=== PATIENT | male | born 1960 | race Caucasian/White ===

== ENCOUNTER 2019-05-05 12:57 | Outpatient (REF) | payer MEDICAID, SELFPAY ==
[2019-05-05 18:52] LABS: HCT 39.9 % (40.0-50.0); HGB 14.1 g/dL (13.5-17.5); Mean Corp. HGB Concentration 35.3 g/dL (32.0-36.0); Mean Corpuscular Hemoglobin 31.2 pg (27.0-33.0); Mean Corpuscular Volume 88.3 fL (80-95); Mean Platelet Volume 9.1 fL (8.0-11.0); Platelet Count 301 x1000/uL (130-400); RBC 4.52 m/cumm (4.50-6.00); RBC Distribution Width 11.8 % (11.8-14.1)
[2019-05-05 19:20] LABS: ALT 62 U/L (12-78); AST 34 U/L (15-37); Albumin 4.2 g/dL (3.4-5.0); Alkaline Phosphatase 67 U/L (46-116); Anion Gap 11.3 mmol/L (3-11); BUN 10 mg/dL (7-18); Bilirubin, Total 0.5 mg/dL (0.2-1.0); CO2 24.7 mmol/L (21.0-32.0); CREATININE 0.92 mg/dL (0.70-1.30); Calcium 9.4 mg/dL (8.5-10.1); Chloride 92 mmol/L (98-107); Glucose 131 mg/dL (70-100); Potassium 4.4 mmol/L (3.5-5.1); Sodium 128 mmol/L (136-145); Total Protein 7.7 g/dL (6.4-8.2)
== END 2019-05-05 13:17 ==
LOC: NCHCN 12:57
PROVIDERS: PCP Internal Medicine; Visit Provider Internal Medicine
DX: E87.1 Hypo-osmolality and hyponatremia (principal); I10 Essential (primary) hypertension; F10.10 Alcohol abuse, uncomplicated; F06.8 Other specified mental disorders due to known physiological condition; Z00.00 Encounter for general adult medical examination without abnormal findings
CPT/HCPCS: 80053; 85027

== ENCOUNTER 2021-05-13 16:07 | Outpatient (REF) | payer MEDICAID, SELFPAY ==
[2021-05-13 18:42] LABS: Abs Immature Grans 0.02 10^3/uL (0.0-0.06); Absolute Basophil Count 0.07 10^3/uL (0.0-0.2); Absolute Eosinophil Count 0.06 10^3/uL (0.0-0.7); Absolute Neutrophil Count 5.57 10^3/uL (1.2-6.7); Basophils % 0.9; Eosinophils % 0.8; HCT 39.4 % (40.0-50.0); HGB 13.2 g/dL (13.5-17.5); Immature Grans % 0.3; Lymphocytes % 17.1; MCH 30.5 pg (27.0-33.0); MCHC 33.5 % (32.0-36.0); MPV 9.2 fL (8.0-11.0); Monocytes % 7.9; Nucleated RBC 0 %; Platelet Count 248 10^3/uL (130-400); RBC 4.33 10^6/uL (4.36-5.78); RDW 12.5 % (11.8-14.1); WBC 7.62 10^3/uL (4.4-10.8)
[2021-05-13 20:10] LABS: ALT 21 U/L (16-63); AST 16 U/L (15-37); Albumin 3.9 g/dL (3.4-5.0); Alkaline Phosphatase 54 U/L (46-116); Anion Gap 9.2 mmol/L (3-11); BUN 15 mg/dL (7-18); Bilirubin, Total 0.5 mg/dL (0.2-1.0); CO2 26.8 mmol/L (21.0-32.0); Calcium 8.8 mg/dL (8.5-10.1); Chloride 98 mmol/L (98-107); Glucose 106 mg/dL (74-106); Potassium 4.7 mmol/L (3.5-5.1); Sodium 134 mmol/L (136-145); Total Protein 7.6 g/dL (6.4-8.2)
[2021-05-13 20:15] LABS: Hemoglobin A1C 5.7 % (<5.7)
== END 2021-05-13 16:08 | disposition home or self-care (01) ==
LOC: NCHCN 16:07
PROVIDERS: PCP Internal Medicine; Visit Provider Physician Assistant
DX: R73.9 Hyperglycemia, unspecified (principal); I10 Essential (primary) hypertension; E87.1 Hypo-osmolality and hyponatremia
CPT/HCPCS: 80053; 83036; 85025

== ENCOUNTER 2022-05-27 18:43 | Outpatient (REF) | payer MEDICAID, SELFPAY ==
[2022-05-27 18:47] LABS: Abs Immature Grans 0.03 10^3/uL (0.0-0.06); Absolute Basophil Count 0.06 10^3/uL (0.0-0.2); Absolute Eosinophil Count 0.05 10^3/uL (0.0-0.7); Absolute Lymphocyte Count 1.16 10^3/uL (1.2-3.4); Absolute Monocyte Count 0.62 10^3/uL (0.1-0.8); Absolute Neutrophil Count 4.98 10^3/uL (1.2-6.7); Basophils % 0.9; Eosinophils % 0.7; HCT 40.9 % (40.0-50.0); HGB 14.1 g/dL (13.5-17.5); Immature Grans % 0.4; Lymphocytes % 16.8; MCH 31.5 pg (27.0-33.0); MCHC 34.5 % (32.0-36.0); MCV 92 fL (80-95); MPV 9.2 fL (8.0-11.0); Neutrophils % 72.2; Platelet Count 252 10^3/uL (130-400); RBC 4.47 10^6/uL (4.36-5.78); RDW 11.8 % (11.8-14.1); RDW-SD 39.9 fL
[2022-05-27 19:16] LABS: ALT 25 U/L (16-63); AST 22 U/L (15-37); Alkaline Phosphatase 47 U/L (46-116); BUN 15 mg/dL (7-18); Bilirubin, Total 0.4 mg/dL (0.2-1.0); CREATININE 1.1 mg/dL (0.70-1.30); Calcium 9.2 mg/dL (8.5-10.1); Chloride 98 mmol/L (98-107); Glucose 120 mg/dL (74-106); Potassium 5.2 mmol/L (3.5-5.1); Sodium 135 mmol/L (136-145); Total Protein 7.9 g/dL (6.4-8.2)
== END 2022-05-27 18:44 | disposition home or self-care (01) ==
LOC: NCHCN 18:43
PROVIDERS: PCP Internal Medicine; Visit Provider Physician Assistant
DX: I10 Essential (primary) hypertension (principal); F10.10 Alcohol abuse, uncomplicated
CPT/HCPCS: 80053; 85025

== ENCOUNTER 2024-03-08 14:51 | Outpatient (REF) | payer MEDICAID, SELFPAY ==
[2024-03-08 19:55] LABS: Abs Immature Grans 0.03 10^3/uL (0.0-0.06); Absolute Basophil Count 0.05 10^3/uL (0.0-0.2); Absolute Eosinophil Count 0.01 10^3/uL (0.0-0.7); Absolute Lymphocyte Count 1.16 10^3/uL (1.2-3.4); Absolute Monocyte Count 0.62 10^3/uL (0.1-0.8); Absolute Neutrophil Count 5.69 10^3/uL (1.2-6.7); Basophils % 0.7 %; Eosinophils % 0.1 %; HGB 14.1 g/dL (13.5-17.5); Immature Grans % 0.4 %; Lymphocytes % 15.3 %; MCHC 35.3 % (32.0-36.0); MCV 91 fL (80-95); MPV 8.9 fL (8.0-11.0); Monocytes % 8.2 %; Neutrophils % 75.3 %; Platelet Count 249 10^3/uL (130-400); RBC 4.41 10^6/uL (4.36-5.78); RDW 11.8 % (11.8-14.1); RDW-SD 39.2 fL; WBC 7.56 10^3/uL (4.4-10.8)
[2024-03-08 20:18] LABS: ALT 27 U/L (16-63); AST 21 U/L (15-37); Albumin 4.2 g/dL (3.4-5.0); Alkaline Phosphatase 51 U/L (46-116); Anion Gap 5.2 mmol/L (3-11); BUN 14 mg/dL (7-18); Bilirubin, Total 0.7 mg/dL (0.2-1.0); CO2 26.8 mmol/L (21.0-32.0); CREATININE 1.1 mg/dL (0.70-1.30); Calcium 9.1 mg/dL (8.5-10.1); Calculated LDL 140 mg/dL (<100); Chloride 95 mmol/L (98-107); Cholesterol 222 mg/dL (<200); Glucose 129 mg/dL (74-106); HDL Cholesterol 62 mg/dL (40-60); Potassium 4.5 mmol/L (3.5-5.1); Sodium 127 mmol/L (136-145); TSH (W/Ref FT4) 1.25 uIU/mL (0.36-3.74); Total Protein 8.1 g/dL (6.4-8.2); Triglyceride 100 mg/dL (<150)
[2024-03-09 19:31] LABS: PSA, Screening 0.8 ng/mL (<=4.5)
== END 2024-03-08 14:52 | disposition home or self-care (01) ==
LOC: NCHCN 14:51
PROVIDERS: PCP Internal Medicine; Visit Provider Physician Assistant
DX: R63.4 Abnormal weight loss (principal); I10 Essential (primary) hypertension
CPT/HCPCS: 80053; 80061; 84153; 84443; 85025

== ENCOUNTER 2025-03-20 16:17 | Outpatient (REF) | payer MEDICAID, SELFPAY ==
[2025-03-20 19:10] LABS: Sodium, Urine 71 mmol/L
[2025-03-20 19:14] LABS: ALT 23 U/L (16-63); AST 23 U/L (15-37); Alkaline Phosphatase 70 U/L (46-116); Anion Gap 4.6 mmol/L (3-11); BUN 13 mg/dL (7-18); Bilirubin, Total 0.5 mg/dL (0.2-1.0); CO2 30.4 mmol/L (21.0-32.0); Calcium 9.4 mg/dL (8.5-10.1); Chloride 99 mmol/L (98-107); Estimated GFR 84.57 (mL/min/1.73m2); Glucose 129 mg/dL (74-106); LDL CHOLESTEROL 168 mg/dL (<100); Potassium 4.8 mmol/L (3.5-5.1); Sodium 134 mmol/L (136-145); TSH (W/Ref FT4) 1.56 uIU/mL (0.36-3.74); Total Protein 8.3 g/dL (6.4-8.2)
[2025-03-21 07:57] LABS: Abs Immature Grans 0.02 10^3/uL (0.0-0.06); Absolute Basophil Count 0.07 10^3/uL (0.0-0.2); Absolute Eosinophil Count 0.03 10^3/uL (0.0-0.7); Absolute Lymphocyte Count 1.32 10^3/uL (1.2-3.4); Absolute Monocyte Count 0.51 10^3/uL (0.1-0.8); Absolute Neutrophil Count 5.78 10^3/uL (1.2-6.7); Basophils % 0.9 %; Eosinophils % 0.4 %; Immature Grans % 0.3 %; Lymphocytes % 17.1 %; MCH 31.3 pg (27.0-33.0); MCHC 33.3 % (32.0-36.0); MCV 94 fL (80-95); MPV 9.4 fL (8.0-11.0); Monocytes % 6.6 %; Neutrophils % 74.7 %; Platelet Count 250 10^3/uL (130-400); RDW 11.8 % (11.8-14.1); RDW-SD 40.8 fL; WBC 7.73 10^3/uL (4.4-10.8)
== END 2025-03-20 16:18 | disposition home or self-care (01) ==
LOC: NCHCN 16:17
PROVIDERS: PCP Internal Medicine; Visit Provider Physician Assistant
DX: E78.5 Hyperlipidemia, unspecified (principal); E87.1 Hypo-osmolality and hyponatremia
CPT/HCPCS: 80053; 83721; 84300; 84443; 85025